=== PATIENT | female | born 2000 | race Caucasian/White ===

== ENCOUNTER 2018-08-22 18:35 | Emergency (ER) | payer BC ==
[2018-08-22] MEDS ORDERED: diphenhydrAMINE 50 MG/ML VIAL ONE (18:49)
[2018-08-22] MEDS ORDERED: Famotidine In NaCl 20 mg/50 ml Premix Bag ONE (18:50)
[2018-08-22] MEDS ORDERED: methylPREDNISolone Sod Succ/PF 125 MG/2 ML VIAL ONE (18:50)
== END 2018-08-22 20:45 | disposition home or self-care (01) ==
LOC: BURERS 18:35
DX: T78.40XA Allergy, unspecified, initial encounter (principal)
CPT/HCPCS: J1200; J2930

== ENCOUNTER 2019-06-17 18:46 | Emergency (ER) | payer BC ==
[2019-06-17] MEDS ORDERED: Ondansetron PF 4 MG/2 ML Vial ONE (19:11)
[2019-06-17 19:20] LABS: #Basophils 0.1 thou/uL (0.0-0.2); #Lymphocytes 0.8 thou/uL (1.20-3.40); #Monocytes 0.7 thou/uL (0.11-0.59); #Neutrophils 11.9 thou/uL (1.40-6.50); %Basophils 0.6 % (0.0-1.0); %Eosinophils 0.1 % (0.0-10.0); %Lymphocytes 6.1 % (21.0-51.0); %Monocytes 5.1 % (0.0-10.0); %Neutrophils 88.2 % (42.0-75.0); Hemoglobin 14.4 g/dL (12.0-16.0); Mean Corpuscular HGB CONC 32.8 g/dL (32.0-36.0); Mean Corpuscular Hemoglobin 29.5 pg (27.0-31.0); Mean Corpuscular Volume 89.9 fL (78.0-98.0); Mean Platelet Volume 9.3 fL (7.4-10.4); Platelet Count 321 thou/uL (130-400); RBC Distribution Width 11.8 % (11.5-14.5); White Blood Cell (WBC) Count 13.5 thou/uL (4.8-10.8)
[2019-06-17 19:33] LABS: ALT (SGPT) 83 U/L (8-55); AST (SGOT) 35 U/L (5-34); Albumin 4.4 g/dL (3.5-5.0); Alkaline Phosphatase 88 U/L (40-110); Anion Gap 14 mmol/L (10-20); BUN (Urea Nitrogen) 8 mg/dL (7.0-18.7); Bilirubin, Total 0.9 mg/dL (0.2-1.2); Calc. Creatinine Clearance 0 mL/min (70-130); Calcium 9.4 mg/dL (7.8-10.44); Carbon Dioxide 23 mmol/L (22-29); Chloride 104 mmol/L (98-107); Estimated GFR-MDRD Greater than 90; Globulin 3.6 g/dL (2.4-3.5); Glucose 99 mg/dL (70-105); Potassium 3.7 mmol/L (3.5-5.1); Sodium 137 mmol/L (136-145)
[2019-06-17 20:55] LABS: Bilirubin Small (Negative); Blood, Urine Negative (Negative); Clarity Hazy (Clear); Glucose, Urine (Dipstick) Negative (Negative); Leukocyte Negative (Negative); Nitrite Negative (Negative); Protein, Urine (Dipstick) Negative (Neg-Trace)
== END 2019-06-18 | disposition short-term general hospital (02) ==
LOC: BURERS 18:46
DX: O99.611 Diseases of the digestive system complicating pregnancy, first trimester (principal); K52.9 Noninfective gastroenteritis and colitis, unspecified; O99.89 Other specified diseases and conditions complicating pregnancy, childbirth and the puerperium; R00.0 Tachycardia, unspecified; Z3A.08 8 weeks gestation of pregnancy
CPT/HCPCS: 80053; 81003; 85025; 93005; 96361; 96374; J2405

== ENCOUNTER 2021-11-09 17:48 | Emergency (ER) | payer BC ==
[2021-11-09] MEDS ORDERED: methylPREDNISolone Sod Succ/PF 125 MG/2 ML VIAL ONE (18:04)
[2021-11-09] MEDS ORDERED: diphenhydrAMINE 50 MG/ML VIAL ONE (18:04)
[2021-11-09] MEDS ORDERED: Famotidine/PF 20 mg/2ml Vial ONE (18:04)
== END 2021-11-09 19:05 | disposition home or self-care (01) ==
LOC: BURERS 17:48
DX: O9A.211 Injury, poisoning and certain other consequences of external causes complicating pregnancy, first trimester (principal); S90.861A Insect bite (nonvenomous), right foot, initial encounter; Z3A.12 12 weeks gestation of pregnancy
CPT/HCPCS: 99282; J1200; J2930; S0028

== ENCOUNTER 2022-03-04 11:02 | Emergency (ER) | payer BC ==
[2022-03-04] MEDS ORDERED: Ondansetron PF 4 MG/2 ML Vial ONE (11:19)
[2022-03-04 11:38] LABS: #Basophils 0.1 thou/uL (0.0-0.2); #Lymphocytes 0.8 thou/uL (1.20-3.40); #Monocytes 0.7 thou/uL (0.11-0.59); #Neutrophils 11.3 thou/uL (1.40-6.50); %Basophils 0.4 % (0.0-1.0); %Eosinophils 0.2 % (0.0-10.0); %Lymphocytes 5.9 % (21.0-51.0); %Monocytes 5.4 % (0.0-10.0); %Neutrophils 88.1 % (42.0-75.0); Hemoglobin 13.9 g/dL (12.0-16.0); Mean Corpuscular HGB CONC 33.8 g/dL (32.0-36.0); Mean Corpuscular Hemoglobin 31.4 pg (27.0-31.0); Mean Corpuscular Volume 92.9 fl (78.0-98.0); Platelet Count 307 10x3/uL (130-400); RBC Distribution Width 12.4 % (11.5-14.5); Red Blood Cell (RBC) Count 4.42 mill/uL (4.20-5.40); White Blood Cell (WBC) Count 12.8 10x3/uL (4.8-10.8)
[2022-03-04 11:53] LABS: ALT (SGPT) 31 U/L (8-55); AST (SGOT) 19 U/L (5-34); Albumin 3.3 g/dL (3.5-5.0); Alkaline Phosphatase 124 U/L (40-110); Anion Gap 10 mmol/L (10-20); BUN (Urea Nitrogen) 7 mg/dL (7.0-18.7); Bilirubin, Total 0.7 mg/dL (0.2-1.2); Calc. Creatinine Clearance 0 mL/min (70-130); Calcium 8.4 mg/dL (7.8-10.44); Carbon Dioxide 24 mmol/L (22-29); Chloride 108 mmol/L (98-107); Estimated GFR 127; Globulin 3.4 g/dL (2.4-3.5); Glucose 90 mg/dL (70-105); Lipase 33 U/L (8-78); Potassium 3.9 mmol/L (3.5-5.1); Protein, Total 6.7 g/dL (6.0-8.3); Sodium 138 mmol/L (136-145)
[2022-03-04 12:19] LABS: Bilirubin Small (Negative); Blood, Urine Negative (Negative); Clarity Cloudy (Clear); Glucose, Urine (Dipstick) Negative (Negative); Ketone, Urine > or equal to 80 mg/dL (Negative); Leukocyte Negative (Negative); Nitrite Negative (Negative); Protein, Urine (Dipstick) 30 mg/dL (Neg-Trace)
[2022-03-04 12:32] LABS: Bacteria/HPF 1+ HPF (None Seen); RBC/HPF None Seen HPF (0-3); Squamous Epithelial 0-3 HPF (0-3); Transitional Epithelial 0-3 HPF (None Seen); WBC/HPF 0-3 HPF (0-3)
== END 2022-03-04 12:53 | disposition home or self-care (01) ==
LOC: BURERS 11:02
DX: O99.891 Other specified diseases and conditions complicating pregnancy (principal); R11.2 Nausea with vomiting, unspecified; R19.7 Diarrhea, unspecified; O99.280 Endocrine, nutritional and metabolic diseases complicating pregnancy, unspecified trimester; E86.0 Dehydration; Z3A.00 Weeks of gestation of pregnancy not specified
CPT/HCPCS: 80053; 81003; 81015; 83605; 83690; 85025; 96361; 96374; J2405